=== PATIENT | female | born 1995 | race Caucasian/White ===

== ENCOUNTER 2020-04-14 00:18 | Emergency (ER) | payer MEDICAID ==
[~2020-04-14] VITALS: Ht 157.5 cm; Wt 113.4 kg
[2020-04-14 00:30] VITALS: BP_SYST 131
--- NOTE | 2020-04-14 00:30 | NUR ---
Patient to ER bed 3 to gown for evaluation. Side rails up. Report given to SIDNEY NEGRETE.
--- NOTE | 2020-04-14 00:39 | NUR ---
ER Dr. STEEN at bedside examining patient.
--- NOTE | 2020-04-14 00:42 | NUR ---
PT A&O X4 FROM HOME C/O OF BURNING/PAIN WHILE URINATING, INCREASE IN FREQUENCY OF URINATING, INABLITIY TO SLEEP DUE TO FREQUENCY. PT STATES SYMPTOMS STARTED 4 DAYS AGO. PT RATES PAIN 5 OUT OF 10. PT DENIES NAUSEA/VOMITING.
[2020-04-14 00:48] LABS: BILIRUBIN,URINE NEGATIVE (NEGATIVE); CLARITY/URINE CLEAR (CLEAR); COLOR,URINE YELLOW (YELLOW); GLUCOSE,URINE NEGATIVE (NEGATIVE); KETONES,URINE NEGATIVE (NEGATIVE); LEUKOCYTE ESTERASE ,URINE 1+ (NEGATIVE); NITRITE, URINE NEGATIVE (NEGATIVE); PROTEIN URINE NEGATIVE (NEGATIVE); UROBILINOGEN,URINE 0.2 (0.2-1.0)
[2020-04-14 00:49] LABS: BLOOD, URINE TRACE (NEGATIVE)
[2020-04-14 00:54] LABS: BACTERIA,URINE FEW /HPF (None Seen)
[2020-04-14] MEDS ORDERED: cefTRIAXone 1 GM VIAL IM ONE (01:00)
[2020-04-14] MEDS ORDERED: IBUPROFEN 800 MG TABLET PO ONE (01:00)
[2020-04-14] MEDS ORDERED: PHENAZOPYRIDINE HCL 100 MG TABLET PO ONE (01:00)
--- NOTE | 2020-04-14 01:46 | NUR ---
pt medicated per md orders. pt tolerated well.
[2020-04-14] MEDS ORDERED: LIDOCAINE 1%, 20 ML MDV 20 ML ONE (01:50)
[2020-04-14 01:54] VITALS: BP_SYST 122
--- NOTE | 2020-04-14 01:54 | NUR ---
Patient given written and verbal discharge instructions and verbalizes understanding. ER MD discussed with patient the results and treatment provided. Patient in stable condition. ID arm band removed. Rx of nitrofuratoin and pyridium given. Patient educated on pain management and to follow up with PMD. Pain Scale 3/10. Opportunity for questions provided and answered. Medication side effect fact sheet provided.
== END 2020-04-14 01:54 | disposition home or self-care (01) ==
LOC: SED 00:18
DX: N39.0 Urinary tract infection, site not specified (principal)
CPT/HCPCS: 81000; 87086; 96372; 99283; J0696; J2001

== ENCOUNTER 2020-05-26 00:51 | Emergency (ER) | payer MEDICAID ==
[~2020-05-26] VITALS: Ht 157.5 cm; Wt 99.8 kg
[2020-05-26 01:16] VITALS: BP_SYST 134
--- NOTE | 2020-05-26 01:19 | NUR ---
Patient to [facility] for evaluation. Side rails up. Report given to PENELOPE Rivas
--- NOTE | 2020-05-26 01:45 | NUR ---
ER Dr. Quinn at bedside examining patient.
--- NOTE | 2020-05-26 01:45 | NUR ---
Pasha jackson in ED - 05/26/20 at 0145 by [id number] Patient to [facility] for evaluation. Report given to PENELOPE Rivas
--- NOTE | 2020-05-26 01:50 | NUR ---
pt a&o x4 from home c/o of right elbow scratch from a metal broom. scratch is about an inch and half long with mild tenderness and redness. pt is unsure if shes had a tetanus vaccine and is requesting one. pt denies any other medical complaints at this time.
[2020-05-26] MEDS ORDERED: SULFAMETHOXAZOLE/TRIMETHOPR DS 1 TABLET ONE (01:57)
[2020-05-26] MEDS ORDERED: BACITRACIN 1 GM OINT TP ONE (02:00)
[2020-05-26] MEDS ORDERED: DIPH-TET-PERTUS Vaccine 0.5 ML VIAL (ADACEL) I.M. ONE (02:00)
[2020-05-26] MEDS ORDERED: SULFAMETHOXAZOLE/TRIMETHOPR DS 1 TABLET PO ONE (02:00)
[2020-05-26 02:07] VITALS: BP_SYST 136
--- NOTE | 2020-05-26 02:07 | NUR ---
Patient given written and verbal discharge instructions and verbalizes understanding. ER MD discussed with patient the results and treatment provided. Patient in stable condition. ID arm band removed. Rx of bactrim given. Patient educated on pain management and to follow up with PMD. Pain Scale 0/10. Opportunity for questions provided and answered. Medication side effect fact sheet provided.
== END 2020-05-26 01:19 | disposition home or self-care (01) ==
LOC: SED 00:51
DX: S50.312A Abrasion of left elbow, initial encounter (principal); L08.89 Other specified local infections of the skin and subcutaneous tissue; W45.8XXA Other foreign body or object entering through skin, initial encounter; Y93.89 Activity, other specified; Y92.89 Other specified places as the place of occurrence of the external cause; Y99.8 Other external cause status
CPT/HCPCS: 90715; 99283

== ENCOUNTER 2021-01-28 00:17 | Emergency (ER) | payer MEDICAID ==
[~2021-01-28] VITALS: Ht 157.5 cm; Wt 117.9 kg
[2021-01-28 00:27] VITALS: BP_SYST 112
[2021-01-28 01:09] LABS: STREPTOCOCCUS A SCREEN (RAPID) NEGATIVE (NEGATIVE)
[2021-01-28] MEDS ORDERED: ALBUTEROL SULFATE 0.083% 2.5 MG/3 ML VIAL.NEB INH ONE (01:30)
[2021-01-28] MEDS ORDERED: ALBMDI INH (01:31)
[2021-01-28 01:49] VITALS: BP_SYST 121
== END 2021-01-28 01:49 | disposition home or self-care (01) ==
LOC: SED 00:17
DX: O99.513 Diseases of the respiratory system complicating pregnancy, third trimester (principal); J02.9 Acute pharyngitis, unspecified; R06.02 Shortness of breath; Z3A.28 28 weeks gestation of pregnancy; Z20.822 Contact with and (suspected) exposure to COVID-19
CPT/HCPCS: 86403; 87081; 87426; 94640; 99283; J7613; 36415